=== PATIENT | female | born 1975 | race African-American/Black ===

== ENCOUNTER 2021-09-30 09:46 | Outpatient (CLI) | payer OTHER | END 2021-09-30 09:47 | disposition home or self-care (01) | LOC: TBSIIMAG 09:46 | PROVIDERS: ATTEND Physician Assistant Surgical | DX: M47.816 Spondylosis without myelopathy or radiculopathy, lumbar region (principal); M54.50 Low back pain, unspecified; M43.17 Spondylolisthesis, lumbosacral region; M47.817 Spondylosis without myelopathy or radiculopathy, lumbosacral region | CPT/HCPCS: 72110 ==